=== PATIENT | female | born 1950 | race Caucasian/White ===

== ENCOUNTER → 2017-03-22 | Outpatient (CLI) | payer OTHER | LOC: FIMAGING 12:13 | PROVIDERS: ATTEND Family Medicine | DX: Z12.31 Encounter for screening mammogram for malignant neoplasm of breast (principal); Z80.3 Family history of malignant neoplasm of breast | CPT/HCPCS: G0202 ==

== ENCOUNTER 2017-04-20 09:33 | Observation (INO) | payer OTHER ==
--- NOTE | 2017-04-20 09:51 | CPEKG ---
Heart Rate: 65 RR Interval: 923 P-R Interval: 172 QRSD Interval: 102 QT Interval: 432 QTC Interval: 450 P [place]: 67 QRS [place]: 0 T Wave [place]: 29 EKG Severity - ABNORMAL ECG - EKG Impression: SINUS RHYTHM EKG Impression: LEFT ATRIAL ABNORMALITY EKG Impression: INDETERMINATE QRS AXIS Electronically Signed By: Braxton Jones 20-Apr-2017 09:53:00
[2017-04-20] MEDS ORDERED: ASPIRIN 81 MG CHEWABLE TAB PO ONE (09:58)
--- NOTE | 2017-04-20 10:08 | EDPHY ---
H & P Time Seen by Provider: 04/20/17 09:48 HPI/ROS: CHIEF COMPLAINT: Chest discomfort HISTORY OF PRESENT ILLNESS: Patient first had symptoms 8 days ago while she was in a dance class which lasted 75 minutes. She got an uncomfortable feeling in her chest and then started seeing spots and felt lightheaded and had nausea and was lightheaded like she might pass out. Yesterday she went to the same dance class but did not push it nearly as hard. She developed the same discomfort in her chest but when she stopped it loosened up and she felt better. She still had of very little bit of symptoms today, 06/30, called her primary care physician master come to the ER for evaluation. Not associated with shortness of breath or coughing. Symptoms do not radiate. Worse when she is exerting herself is noted above. REVIEW OF SYSTEMS: Eye: no change in vision ENT: no sore throat Cardiac: HPI Pulmonary: no cough or SOB Abdomen: no vomiting, diarrhea, abdominal pain Musculoskeletal: no back pain Skin: no rash Neuro: no headache Constitutional: no fever : no urinary symptoms A comprehensive 10 point review of systems is otherwise negative aside from elements mentioned in the history of present illness. PAST MEDICAL HISTORY: dental surgery and anxiety. Negative for hypercholesterolemia diabetes or hypertension. Social history: Negative for family history of coronary disease, negative for tobacco or cocaine General Appearance: Alert and conversant, cooperative. Eyes: No scleral icterus. ENT, Mouth: Normal mucous membranes. Respiratory: Normal respiratory effort, breath sounds equal, lungs are clear to auscultation. Cardiovascular: Regular rate and rhythm. Gastrointestinal: Abdomen is soft and non tender. Neurological: Alert and oriented x3. Normally conversant. Face symmetric, normal movement and sensation in all extremities. Skin: Warm and dry, no rashes. Musculoskeletal: No peripheral edema and no joint swelling. Psychiatric: Not agitated. Emergency Department course/MDM: Initial EKG not normal but does not show ST elevation ND. Oral aspirin, repeat EKG, chest x-ray and troponin. Admission for further evaluation of exertional chest discomfort. Smoking Status: Never smoked Constitutional: Initial Vital Signs Temperature (C) 36.6 C 04/20/17 09:35 Heart Rate 75 04/20/17 09:35 Respiratory Rate 16 04/20/17 09:35 Blood Pressure 147/97 H 04/20/17 09:35 O2 Sat (%) 98 04/20/17 09:35 O2 Delivery Mode Room Air Allergies/Adverse Reactions: gabapentin Allergy (Verified 04/20/17 12:04) Neuropathy phenobarbital Allergy (Verified 04/20/17 12:04) Rash Home Medications: Medication Instructions Recorded Aspirin/Acetaminophen/Caffeine 1 each PO DAILY PRN 04/20/17 [Excedrin Migraine Geltab] Estriol Compounded Cream 1 gavin VG .TWICE WEEKLY 04/20/17 Levothyroxine [Synthroid 25 mcg 12.5 mcg PO DAILY06 04/20/17 (*)] Mirtazapine [Remeron] 7.5 mg PO HS 04/20/17 Vilazodone HCl [Viibryd] 40 mg PO DAILY 04/20/17 Medical Decision Making - Diagnostics EKG Interpretation: 12-lead EKG interpreted by me; official reading is in trace master. My interpretation is sinus rhythm with left atrial abnormality and possible biphasic T-wave versus artifact in V1 and V2 at 9:49 a.m. 12-lead EKG interpreted by me; official reading is in trace master. My interpretation is sinus rhythm rate 64 with left atrial abnormality and left axis at 10:53 a.m. Imaging Results: Imaging Impressions Chest X-Ray 04/20/17 10:08 Impression: Suspect airways disease. Otherwise negative. Differential Diagnosis: Differential diagnosis considered for chest pain including but not limited to myocardial ischemia, aortic dissection, pericarditis, pulmonary embolus, chest wall pain, pleural inflammation and pulmonary infectious causes. Consult/Admit Bed Type: [facility] 1111 - Data Points Laboratory Results: Laboratory Results 04/20/17 09:55 04/20/17 09:55 04/20/17 04/20/17 04/20/17 09:55 09:55 09:55 WBC 3.74 10^3/uL L 10^3/uL (3.80-9.50) RBC 4.32 10^6/uL 10^6/uL (4.18-5.33) Hgb 14.0 g/dL g/dL (12.6-16.3) Hct 41.3 % % (38.0-47.0) MCV 95.6 fL fL (81.5-99.8) MCH 32.4 pg pg (27.9-34.1) MCHC 33.9 g/dL g/dL (32.4-36.7) RDW 12.9 % % (11.5-15.2) Plt Count 151 10^3/uL 10^3/uL (150-400) MPV 12.0 fL H fL (8.7-11.7) Neut % (Auto) 57.5 % % (39.3-74.2) Lymph % (Auto) 28.3 % % (15.0-45.0) [place] % (Auto) 10.4 % % (4.5-13.0) Eos % (Auto) 2.7 % % (0.6-7.6) Baso % (Auto) 0.8 % % (0.3-1.7) Nucleat RBC Rel Count 0.0 % % (0.0-0.2) Absolute Neuts (auto) 2.15 10^3/uL 10^3/uL (1.70-6.50) Absolute Lymphs (auto) 1.06 10^3/uL 10^3/uL (1.00-3.00) Absolute Monos (auto) 0.39 10^3/uL 10^3/uL (0.30-0.80) Absolute Eos (auto) 0.10 10^3/uL 10^3/uL (0.03-0.40) Absolute Basos (auto) 0.03 10^3/uL 10^3/uL (0.02-0.10) Absolute Nucleated RBC 0.00 10^3/uL 10^3/uL (0-0.01) Immature Gran % 0.3 % % (0.0-1.1) Immature Gran # 0.01 10^3/uL 10^3/uL (0.00-0.10) Sodium 144 mEq/L mEq/L (134-144) Potassium 3.5 mEq/L mEq/L (3.5-5.2) Chloride 103 mEq/L mEq/L (97-110) Carbon Dioxide 26 mEq/l mEq/l (22-31) Anion Gap 15 mEq/L mEq/L (8-16) BUN 14 mg/dL mg/dL (7-23) Creatinine 1.0 mg/dL mg/dL (0.6-1.0) Estimated GFR 55 Glucose 70 mg/dL mg/dL (70-100) Calcium 9.7 mg/dL mg/dL (8.5-10.4) Troponin I < 0.012 ng/mL ng/mL (0.000-0.034) TSH Pending Medications Given: Discontinued Medications Aspirin (Aspirin) 324 mg PO EDNOW ONE Stop: 04/20/17 09:59 Last Admin: 04/20/17 10:03 Dose: 324 mg Departure - Departure Disposition: [facility] Inpatient Acute Clinical Impression: Chest pain Qualifiers: Chest pain type: unspecified Qualified Code(s): R07.9 - Chest pain, unspecified Condition: Good
[2017-04-20 10:10] LABS: PLATELET COUNT 151 10^3/uL (150-400)
--- NOTE | 2017-04-20 10:59 | CPEKG ---
Heart Rate: 64 RR Interval: 938 P-R Interval: 188 QRSD Interval: 100 QT Interval: 444 QTC Interval: 458 P [place]: 68 QRS [place]: -63 T Wave [place]: 43 EKG Severity - BORDERLINE ECG - EKG Impression: SINUS RHYTHM EKG Impression: PROBABLE LEFT ATRIAL ABNORMALITY EKG Impression: LEFT AXIS DEVIATION Electronically Signed By: Braxton Jones 20-Apr-2017 14:57:54
--- NOTE | 2017-04-20 10:59 | CPEKG ---
Heart Rate: 64 RR Interval: 938 P-R Interval: 188 QRSD Interval: 100 QT Interval: 444 QTC Interval: 458 P [place]: 68 QRS [place]: -63 T Wave [place]: 43 EKG Severity - BORDERLINE ECG - EKG Impression: SINUS RHYTHM EKG Impression: PROBABLE LEFT ATRIAL ABNORMALITY EKG Impression: LEFT AXIS DEVIATION Electronically Signed By: Braxton Jones 20-Apr-2017 14:57:54
[2017-04-20] MEDS ORDERED: ACETAMINOPHEN 325 MG TAB PO PRN (12:26)
[2017-04-20] MEDS ORDERED: ONDANSETRON 4 MG/2 ML VIAL IVP PRN (12:26)
[2017-04-20] MEDS ORDERED: ZOLPIDEM TARTRATE 5 MG TAB PO PRN (12:26)
[2017-04-20] MEDS ORDERED: ACETAMINOPHEN/ASA/CAFFEINE 1 EACH TAB PO PRN (12:28)
--- NOTE | 2017-04-20 13:24 | CPEKG ---
Heart Rate: 64 RR Interval: 938 P-R Interval: 188 QRSD Interval: 98 QT Interval: 440 QTC Interval: 454 P [place]: 64 QRS [place]: -79 T Wave [place]: 37 EKG Severity - BORDERLINE ECG - EKG Impression: SINUS RHYTHM EKG Impression: PROBABLE LEFT ATRIAL ABNORMALITY EKG Impression: LEFT AXIS DEVIATION Electronically Signed By: Ezra Castillo 20-Apr-2017 14:14:03
--- NOTE | 2017-04-20 13:24 | CPEKG ---
Heart Rate: 64 RR Interval: 938 P-R Interval: 188 QRSD Interval: 98 QT Interval: 440 QTC Interval: 454 P [place]: 64 QRS [place]: -79 T Wave [place]: 37 EKG Severity - BORDERLINE ECG - EKG Impression: SINUS RHYTHM EKG Impression: PROBABLE LEFT ATRIAL ABNORMALITY EKG Impression: LEFT AXIS DEVIATION Electronically Signed By: Ezra Castillo 20-Apr-2017 14:14:03
--- NOTE | 2017-04-20 14:12 | PDGENHP ---
History and Physical History and Physical: CC: Chest pain HISTORY: This woman with no history of heart disease or pulmonary disease comes in to evaluate chest discomfort episodes. It is a little bit difficult to entirely clarify the timing of chest discomfort onset for her historically. However the most concerning episode for her occurred about a week ago when she was at a dance class during which she exercised more significantly than she typically would. During this class she had to stop because of a heavy tight sensation in the substernal area associated with nausea and lightheadedness. She rested and the symptoms gradually abated. She went to the same dance class yesterday and was careful to not exert herself as significantly but did develop some mild discomfort again yesterday without the other associated symptoms. This again was relieved with rest. She since that time has a sensation of vague discomfort in the epigastrium that seems to be relieved when she pushes in on the epigastrium. When asked when was the 1st time she noticed exertional chest discomfort she tells me that she has been having some milder but similar chest discomfort with exertion for many years. She has never really had this assessed before. She has no history of palpitations, syncope, leg swelling, orthopnea, cough, fever, shortness of breath. In terms of exertion she does the days clinics as which she mentions. Otherwise she does some walking and swimming intermittently which she says are never significant and exertion in terms of getting her heart rate up. There is no history of a diagnosis of heart long vascular or thromboembolic disease. ROS: A comprehensive 10 system review revealed no other significant findings PAST MEDICAL HISTORY: 2 seizures in her early 20s but no seizure events Hypothyroidism No history of diabetes, hypertension, or lipid disorder FAMILY MEDICAL HISTORY: No heart or vascular illness in the family SOCIAL HISTORY: No history tobacco use MEDICATIONS: The patients list has been reconciled by our clinical pharmacist in the EMR. I have reviewed the list and ordered appropriate medicines. 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 Sinus rhythm is present in all 3. The 1st EKG there is some U-waves present as well as some nonspecific repolarization abnormality which is not present on the 2nd and 3rd EKG. ASSESSMENT: # chest pain syndrome involving and exertional chest tightness associated with nausea and lightheadedness, with a background history of chronic exertional chest discomfort that is very vaguely described. # chronic hypothyroidism on replacement, has not had TSH checked for more than a year Overall given the normal troponin the nonischemic appearing EKGs the normal vital signs and absence of heart failure, the risk of impending coronary events is reasonably low but high enough to warrant observation overnight with repeat troponins and treadmill in the morning. PLANS: -observe overnight on manager cardiac -repeat troponins -if all is stable would do treadmill stress testing tomorrow morning; if more concerning events or findings arise angiography or other assessments may be indicated -will check her TSH is that is due now and we have blood samples in the lab I have reviewed the patient's case in detail with Dr. Jones
[2017-04-20 17:31] VITALS: RESP 16
[2017-04-20] MEDS ORDERED: MIRTAZAPINE 7.5 MG PO SCH (21:00)
[2017-04-21] MEDS ORDERED: LEVOTHYROXINE 25 MCG TAB PO SCH (06:00)
[2017-04-21 08:25] VITALS: BP 134/92; PULSE 64; TEMP 97.9; O2SAT 94
[2017-04-21] MEDS ORDERED: Vilazodone Hcl [Viibryd] 40 MG PO SCH (09:00)
--- NOTE | 2017-04-21 09:36 | ASMTCASEMG ---
Living Arrangements What is your living Answers: With Spouse arrangement? Who do you live with? Type Of Residence What kind of residence do Answers: House you live in? Discharge Plan Comments Coordination Status Comments Notes: Pt is a 67 y/o female that came in w/ chest pain. Anticipates that pt will d/c independent w/ supportive when medically stable. Stress test ordered. CM available should d/c needs arise. Date Signed: 04/21/2017 09:35 AM Electronically Signed By:SEMAJ Alfaro
--- NOTE | 2017-04-21 13:14 | CPR ---
[f rep st] NONINVASIVE CARDIAC PROCEDURE REPORT INDICATION FOR STRESS TESTING: Chest pressure, evaluation for ischemia. PRE: After obtaining informed consent, the patient was placed on electrocardiogram. Initial EKG cordell wing sinus rhythm, normal axis, RSR prime noted in V1 and V2, incomplete right bundle branch block. No significant ST or T-wave abnormalities. Initial blood pressure 124/90, saturation 98% on room air . The patient denies any chest pain or symptoms suggesting of ischemia. STRESS: The patient was placed on exercise treadmill, and the following findings. 1. Patient exercised for 10 minutes. 2. 10.9 METS. 3. Obtaining a heart rate of 148 beats per minute, which was 97% of her maximum predicted heart rate . 4. The patient had no ST shifts at peak exercise suggesting of ischemia. The patient had no chest p ain or symptoms suggesting of ischemia during stress testing. 5. The patient was noted to have rare premature ventricular contraction during stress, but no other arrhythmias in rest, stress or recovery phases. 6. SpO2 was greater than 90%. 7. BP response: Resting 124/90, peak 176/110. 8. The test was stopped due to maximum effort. 9. Raza treadmill score of 10, placing the patient at low cardiovascular risk. RECOVERY: The patient recovered for 5 minutes. Within that time, heart rate returned back to baseli ne. The patient remained asymptomatic. Final blood pressure after 5 minutes was 136/90. IMPRESSION: 1. A 67-year-old female admitted for chest pressure, undergoing exercise treadmill testing, with no significant ST shifts at peak exercise suggesting ischemia. 2. No symptoms at peak exercise suggesting ischemia. 3. Able to go 10 minutes, Raza treadmill score of 10, low cardiovascular risk. 4. Negative stress testing for signs of ischemia. /[id number]/MODL
--- NOTE | 2017-04-21 13:53 | PDDCSUM ---
Discharge Summary Discharge Summary: DISCHARGE DIAGNOSES: -THIS PAIN, RULE OUT VT, NO SIGNS OF ACUTE CORONARY SYNDROME OR OTHER CARDIAC ABNORMALITY -NORMAL TREADMILL STRESS TESTING HOSPITAL COURSE SUMMARY: This patient presented to the hospital after some episodes of exertional chest discomfort 1 of which involved also some nausea. She had been doing some high level activity chance routines that lasted more than an hour. She ruled out for myocardial infarction, had no signs of heart failure or arrhythmia. Her vital signs were normal. Chest x-ray and EKGs were unremarkable. She underwent treadmill exercise stress testing to 10 minutes with no symptoms, no EKG changes, and with normal pulse and blood pressure responses and recovery times. She is felt to be a very low risk for any future cardiac events. PENDING TEST RESULTS: None MEDICATION CHANGES: None FOLLOW-UP PLAN: With her her care physician in 2-4 weeks
--- NOTE | 2017-04-21 13:53 | PDDCSUM ---
Discharge Summary Discharge Summary: DISCHARGE DIAGNOSES: -THIS PAIN, RULE OUT MA, NO SIGNS OF ACUTE CORONARY SYNDROME OR OTHER CARDIAC ABNORMALITY -NORMAL TREADMILL STRESS TESTING HOSPITAL COURSE SUMMARY: This patient presented to the hospital after some episodes of exertional chest discomfort 1 of which involved also some nausea. She had been doing some high level activity chance routines that lasted more than an hour. She ruled out for myocardial infarction, had no signs of heart failure or arrhythmia. Her vital signs were normal. Chest x-ray and EKGs were unremarkable. She underwent treadmill exercise stress testing to 10 minutes with no symptoms, no EKG changes, and with normal pulse and blood pressure responses and recovery times. She is felt to be a very low risk for any future cardiac events. PENDING TEST RESULTS: None MEDICATION CHANGES: None FOLLOW-UP PLAN: With her her care physician in 2-4 weeks
--- NOTE | 2017-04-21 13:53 | PDDCSUM ---
Discharge Summary Discharge Summary: DISCHARGE DIAGNOSES: -THIS PAIN, RULE OUT TX, NO SIGNS OF ACUTE CORONARY SYNDROME OR OTHER CARDIAC ABNORMALITY -NORMAL TREADMILL STRESS TESTING HOSPITAL COURSE SUMMARY: This patient presented to the hospital after some episodes of exertional chest discomfort 1 of which involved also some nausea. She had been doing some high level activity chance routines that lasted more than an hour. She ruled out for myocardial infarction, had no signs of heart failure or arrhythmia. Her vital signs were normal. Chest x-ray and EKGs were unremarkable. She underwent treadmill exercise stress testing to 10 minutes with no symptoms, no EKG changes, and with normal pulse and blood pressure responses and recovery times. She is felt to be a very low risk for any future cardiac events. PENDING TEST RESULTS: None MEDICATION CHANGES: None FOLLOW-UP PLAN: With her her care physician in 2-4 weeks
--- NOTE | 2017-04-21 15:58 | ASDISCHSUM ---
Discharge Information Plan Status:Home with No Needs Medically Cleared to Leave:04/21/2017 Discharge Date:04/21/2017 02:24 PM CM D/C Disposition:Home, Routine, Self-Care ADT D/C Disposition:Home, Routine, Self-Care Projected Discharge Date:04/21/2017 02:24 PM Transportation at D/C:Family Discharge Delay Reason: Follow-Up Date:04/21/2017 02:24 PM Discharge Slot: Final Diagnosis: Placement Information Patient Contact Information Contact Name:IRIS Relationship: [address] [place] Alternate Phone: State/Zip Code:[place] [address] Email: Financial Information Financial Class: Primary Plan Desc:MEDICARE OUTPATIENT Primary Plan Number:[id number] Secondary Plan Desc:SRINIVAS PPO [employer]IV [employer] Secondary Plan Number:[id number] Assessment Information [facility] Initial CM Assessment Living Arrangements What is your living Answers: With Spouse arrangement? Who do you live with? Type Of Residence What kind of residence do Answers: House you live in? Discharge Plan Comments Coordination Status Comments Notes: Pt is a 67 y/o female that came in w/ chest pain. Anticipates that pt will d/c independent w/ supportive when medically stable. Stress test ordered. CM available should d/c needs arise. Date Signed: 04/21/2017 09:35 AM Electronically Signed By:SEMAJ Alfaro Intervention Information Intervention Type:*ESCOBAR-Signed Date of Service:04/21/2017 09:47 AM Patient Type:Observation Staff Member:Rose Camara Hours: Discipline: Severity: Comment:
--- NOTE | 2017-04-21 15:58 | ASDISCHSUM ---
Discharge Information Plan Status:Home with No Needs Medically Cleared to Leave:04/21/2017 Discharge Date:04/21/2017 02:24 PM CM D/C Disposition:Home, Routine, Self-Care ADT D/C Disposition:Home, Routine, Self-Care Projected Discharge Date:04/21/2017 02:24 PM Transportation at D/C:Family Discharge Delay Reason: Follow-Up Date:04/21/2017 02:24 PM Discharge Slot: Final Diagnosis: Placement Information Patient Contact Information Contact Name:IRIS Relationship: [address] [place] Alternate Phone: State/Zip Code:[place] [address] Email: Financial Information Financial Class: Primary Plan Desc:MEDICARE OUTPATIENT Primary Plan Number:[id number] Secondary Plan Desc:SRINIVAS PPO [employer]IV [place] Secondary Plan Number:[id number] Assessment Information [facility] Initial CM Assessment Living Arrangements What is your living Answers: With Spouse arrangement? Who do you live with? Type Of Residence What kind of residence do Answers: House you live in? Discharge Plan Comments Coordination Status Comments Notes: Pt is a 67 y/o female that came in w/ chest pain. Anticipates that pt will d/c independent w/ supportive when medically stable. Stress test ordered. CM available should d/c needs arise. Date Signed: 04/21/2017 09:35 AM Electronically Signed By:SEMAJ Alfaro Intervention Information Intervention Type:*ESCOBAR-Signed Date of Service:04/21/2017 09:47 AM Patient Type:Observation Staff Member:Rose Camara Hours: Discipline: Severity: Comment:
--- NOTE | 2017-04-21 15:58 | ASDISCHSUM ---
Discharge Information Plan Status:Home with No Needs Medically Cleared to Leave:04/21/2017 Discharge Date:04/21/2017 02:24 PM CM D/C Disposition:Home, Routine, Self-Care ADT D/C Disposition:Home, Routine, Self-Care Projected Discharge Date:04/21/2017 02:24 PM Transportation at D/C:Family Discharge Delay Reason: Follow-Up Date:04/21/2017 02:24 PM Discharge Slot: Final Diagnosis: Placement Information Patient Contact Information Contact Name:IRIS Relationship: [address] [place] Alternate Phone: State/Zip Code:[place] [address] Email: Financial Information Financial Class: Primary Plan Desc:MEDICARE OUTPATIENT Primary Plan Number:[id number] Secondary Plan Desc:SRINIVAS PPO [employer] Secondary Plan Number:[id number] Assessment Information [facility] Initial CM Assessment Living Arrangements What is your living Answers: With Spouse arrangement? Who do you live with? Type Of Residence What kind of residence do Answers: House you live in? Discharge Plan Comments Coordination Status Comments Notes: Pt is a 67 y/o female that came in w/ chest pain. Anticipates that pt will d/c independent w/ supportive when medically stable. Stress test ordered. CM available should d/c needs arise. Date Signed: 04/21/2017 09:35 AM Electronically Signed By:SEMAJ Alfaro Intervention Information Intervention Type:*ESCOBAR-Signed Date of Service:04/21/2017 09:47 AM Patient Type:Observation Staff Member:Rose Camara Hours: Discipline: Severity: Comment:
== END 2017-04-21 14:24 | disposition home or self-care (01) ==
LOC: F2W 12:48
PROVIDERS: ADMIT Internal Medicine; ATTEND Internal Medicine
DX: R07.9 Chest pain, unspecified (principal); E03.9 Hypothyroidism, unspecified
CPT/HCPCS: 71020; 93005; 93017; 99285; G0378

== ENCOUNTER → 2018-03-29 | Outpatient (CLI) | payer OTHER | LOC: FIMAGING 09:18 | PROVIDERS: ATTEND Family Medicine | DX: Z12.31 Encounter for screening mammogram for malignant neoplasm of breast (principal) ==